=== PATIENT | male | born 1935 | race Caucasian/White ===

== ENCOUNTER → 2020-10-14 | Outpatient (CLI) | payer MEDICARE ==
[~2020-10-14] MED LIST: ASPIRIN EC81 MG PO; BACLOFEN5 MG PO; CARDURA1 MG PO; CLOPIDOGREL75 MG PO; EUTHYROX25 MCG PO; GLIPIZIDE ER5 MG PO; GLUCOPHAGE1000 MG PO; HYDRALAZINE HCL25 MG PO; K-DUR TAB 10 M10 MEQ PO; LASIX 40 MG TAB40 MG PO; LASIX40 MG PO; LEVOFLOXACIN500 MG PO; LEVOTHYROXINE25 MCG PO; LEVOTHYROXINE50 MCG PO; LOPRESSOR 50 MG50 MG PO; PRAVACHOL20 MG PO; PREVACID30 MG PO; SILDENAFIL20 MG PO; TRICOR 145 MG145 MG PO; VASOTEC20 MG PO
== END ==
LOC: KOH-I 13:30
DX: J84.10 Pulmonary fibrosis, unspecified (principal); J43.2 Centrilobular emphysema
CPT/HCPCS: 71250

== ENCOUNTER → 2020-12-23 | Outpatient (CLI) | payer MEDICARE | LOC: ECHO 12:24 → US 15:00 | DX: H34.12 Central retinal artery occlusion, left eye (principal); I65.23 Occlusion and stenosis of bilateral carotid arteries; I08.2 Rheumatic disorders of both aortic and tricuspid valves; I27.20 Pulmonary hypertension, unspecified | CPT/HCPCS: ECHO; 36415; 85652; 86140; 93306; 93880 ==

== ENCOUNTER → 2021-01-05 | Outpatient (CLI) | payer MEDICARE | LOC: RT 12:12 | DX: I10 Essential (primary) hypertension (principal); R94.31 Abnormal electrocardiogram [ECG] [EKG] | CPT/HCPCS: 93005 ==

== ENCOUNTER → 2021-02-10 | Outpatient (CLI) | payer MEDICARE | LOC: OPSV2 11:00 | PROVIDERS: Anesthesiology | DX: Z01.818 Encounter for other preprocedural examination (principal) | CPT/HCPCS: 36415; 80048; 93005 ==

== ENCOUNTER → 2021-02-19 | Day surgery (SDC) | payer MEDICARE | END | disposition home or self-care (01) | LOC: OR 06:39 | DX: H53.8 Other visual disturbances (principal); R51.9 Headache, unspecified; I25.10 Atherosclerotic heart disease of native coronary artery without angina pectoris; I11.0 Hypertensive heart disease with heart failure; J84.10 Pulmonary fibrosis, unspecified; E11.9 Type 2 diabetes mellitus without complications; I50.30 Unspecified diastolic (congestive) heart failure; Z87.891 Personal history of nicotine dependence; E66.9 Obesity, unspecified; Z98.61 Coronary angioplasty status; I65.29 Occlusion and stenosis of unspecified carotid artery; I27.20 Pulmonary hypertension, unspecified; G47.33 Obstructive sleep apnea (adult) (pediatric); Z88.1 Allergy status to other antibiotic agents; Z68.35 Body mass index [BMI] 35.0-35.9, adult; I08.2 Rheumatic disorders of both aortic and tricuspid valves; E78.5 Hyperlipidemia, unspecified; J43.9 Emphysema, unspecified; Z79.84 Long term (current) use of oral hypoglycemic drugs; E03.9 Hypothyroidism, unspecified | CPT/HCPCS: 82962; J1100; J2001; J2405; J2704; J3010; J7030; J7120 ==

== ENCOUNTER → 2021-04-08 | Outpatient (CLI) | payer MEDICARE | LOC: US 13:30 | DX: N18.31 Chronic kidney disease, stage 3a (principal); N28.89 Other specified disorders of kidney and ureter; N20.0 Calculus of kidney ==

== ENCOUNTER → 2021-05-04 | Outpatient (CLI) | payer MEDICARE | LOC: KOH-I 10:00 | DX: N20.0 Calculus of kidney (principal); N28.9 Disorder of kidney and ureter, unspecified | CPT/HCPCS: 74176 ==

== ENCOUNTER → 2021-08-17 | Outpatient (CLI) | payer MEDICARE | LOC: KOH-I 05-28 14:00 | DX: N28.1 Cyst of kidney, acquired (principal) | CPT/HCPCS: 76775 ==